=== PATIENT | male | born 1995 | race Caucasian/White ===

== ENCOUNTER 2017-07-19 10:56 | Inpatient (IN) | payer BC ==
[~2017-07-19] VITALS: Ht 182.9 cm; Wt 70.3 kg
[2017-07-19] MEDS ORDERED: MORPHINE SULFATE 4 MG/ML CPJ (NOT FOR IM USE) IV ONE ×2 (11:45→14:15)
[2017-07-19] MEDS ORDERED: SODIUM CHLORIDE 0.9% 1,000 ML IV ONE (11:45)
[2017-07-19] MEDS ORDERED: ONDANSETRON HCL 4MG/2ML VIAL IV ONE ×2 (11:45→14:15)
[2017-07-19 11:55] LABS: BASOPHILS % 0.1 % (0.0-2.0); HEMATOCRIT. 47.9 % (42.0-52.0); HEMOGLOBIN. 16.1 g/dL (14.0-18.0); LYMPHOCYTES % 8.6 % (20.0-50.0); MEAN CORPUSCULAR HEMOGLOBIN 28.5 pg (28.0-32.0); MEAN PLATELET VOLUME 9.9 fl (7.4-10.4); MONOCYTES % 6.5 % (2.0-8.0); NEUTROPHILS % 84.8 % (40.0-76.0); PLATELET 232 x1000/uL (130-400); RED BLOOD CELL COUNT 5.63 mill/uL (4.7-6.1); RED CELL DISTRIBUTION WIDTH 13.8 % (11.6-14.6)
[2017-07-19 12:04] LABS: CARBON DIOXIDE 26 mEq/L (21-32); CHLORIDE 97 mEq/L (98-107)
[2017-07-19] MEDS ORDERED: PIPERACILLIN/TAZ 3.375G PREMIX 50 ML IV ONE (13:45)
[2017-07-19] MEDS ORDERED: PIPERACILLIN/TAZOBACTAM 3.375GM/50ML PREMIX IV ONE (13:45)
[2017-07-19] MEDS ORDERED: SODIUM CHLORIDE 0.9% 1000ML BAG (SEPSIS BOLUS) IV ONE (13:45)
[2017-07-19 14:31] LABS: CLARITY URINE CLOUDY (CLEAR); COLOR URINE DARK YELLOW (YELLOW); GLUCOSE URINE NEGATIVE (NEGATIVE); KETONES URINE 2+ (NEGATIVE); LEUKOCYTE ESTERASE URINE NEGATIVE (NEGATIVE); NITRITE URINE NEGATIVE (NEGATIVE); OCCULT BLOOD URINE NEGATIVE (NEGATIVE); PH URINE 5.5 (4.5-8.0); PROTEIN URINE 2+ (NEGATIVE); SPECIFIC GRAVITY URINE 1.035 (1.005-1.030)
[2017-07-19] MEDS ORDERED: ONDANSETRON HCL 4MG/2ML VIAL IV PRN (14:45)
[2017-07-19] MEDS ORDERED: CLONIDINE 0.1MG TABLET PO PRN (14:45)
[2017-07-19] MEDS ORDERED: ACETAMINOPHEN 325MG TABLET PO PRN (14:45)
[2017-07-19] MEDS ORDERED: MAGNESIUM/ALUMINUM HYDROXIDE/SIMETHICONE 30ML UDC PO PRN (14:45)
[2017-07-19] MEDS ORDERED: HYDROCODONE/ACETAMINOPHEN 5/325MG TABLET PO PRN (14:45)
[2017-07-19] MEDS ORDERED: IPRATROPIUM/ALBUTEROL 0.5-3(2.5)MG/3ML NEB INH PRN (14:45)
[2017-07-19 15:46] LABS: HEPATITIS B SURFACE ANTIGEN NEGATIVE
[2017-07-19 16:14] LABS: HEPATITIS B CORE AB IGM NEGATIVE
[2017-07-19 16:15] LABS: HEPATITIS A AB IGM NEGATIVE (NEGATIVE)
[2017-07-19 18:00] VITALS: BP 103/41
[2017-07-19] MEDS: SODIUM CHLORIDE 0.9% 1,000 ML IV SCH (19:30)
[2017-07-19 20:00] VITALS: BP 97/42
[2017-07-19 20:50] VITALS: BP 97/42
[2017-07-19] MEDS: PIPERACILLIN/TAZ 3.375G PREMIX 50 ML IV SCH (23:21)
[2017-07-20] VITALS: BP 92/41
[2017-07-20] LABS: CREATINE KINASE 86 IU/L (39-308); TROPONIN I < 0.02 ng/mL (0.00-0.04)
[2017-07-20 04:00] VITALS: BP 94/40
[2017-07-20] MEDS: PIPERACILLIN/TAZ 3.375G PREMIX 50 ML IV SCH ×2 (05:36→12:26)
[2017-07-20 07:18] LABS: BASOPHILS % 0.4 % (0.0-2.0); EOSINOPHILS % 0.8 % (0.0-5.0); HEMATOCRIT. 37.6 % (42.0-52.0); HEMOGLOBIN. 12.9 g/dL (14.0-18.0); LYMPHOCYTES % 27.2 % (20.0-50.0); MEAN CORPUSCULAR VOLUME 84.8 fL (80.0-94.0); MEAN PLATELET VOLUME 10.1 fl (7.4-10.4); MONOCYTES % 11.5 % (2.0-8.0); NEUTROPHILS % 60.1 % (40.0-76.0); PLATELET 164 x1000/uL (130-400); RED BLOOD CELL COUNT 4.43 mill/uL (4.7-6.1); RED CELL DISTRIBUTION WIDTH 13.5 % (11.6-14.6)
[2017-07-20 08:00] VITALS: BP 90/40
[2017-07-20 08:01] LABS: CARBON DIOXIDE 26 mEq/L (21-32); CHLORIDE 108 mEq/L (98-107)
[2017-07-20 08:13] LABS: CREATINE KINASE 77 IU/L (39-308); CREATINE KINASE MB FRACTION 0.8 ng/mL (0.5-3.6); HDL CHOLESTEROL 24 mg/dL (40-59); LDL CHOLESTEROL 99 mg/dL (5-100); TROPONIN I < 0.02 ng/mL (0.00-0.04)
[2017-07-20] MEDS: SODIUM CHLORIDE 0.9% 1,000 ML IV SCH (08:54)
[2017-07-20] MEDS ORDERED: ENOXAPARIN 40MG/0.4ML SYR SUBCUT SCH (09:00)
[2017-07-20 10:46] LABS: *AMPHETAMINES SCREEN URINE NEGATIVE (NEGATIVE); *BARBITURATES SCREEN URINE NEGATIVE (NEGATIVE); *BENZODIAZEPINES SCREEN URINE NEGATIVE (NEGATIVE); *COCAINE SCREEN URINE PRESUMTIVE POSITIVE (NEGATIVE); CANNABINOID URINE SCREEN PRESUMTIVE POSITIVE (NEGATIVE); METHADONE URINE SCREEN NEGATIVE (NEGATIVE); OPIATES URINE SCREEN PRESUMTIVE POSITIVE (NEGATIVE); PHENCYCLIDINE URINE SCREEN NEGATIVE (NEGATIVE)
[2017-07-20 12:00] VITALS: BP 98/47
[2017-07-20 12:53] VITALS: BP 98/47
== END 2017-07-20 13:53 | disposition home or self-care (01) | DRG 392 ==
LOC: ER 12:19 → 6EST 14:10 → ENRESERV 16:10
PROVIDERS: ADMIT Internal Medicine; ATTEND Internal Medicine
DX: A08.4 Viral intestinal infection, unspecified (principal); D72.829 Elevated white blood cell count, unspecified; R10.9 Unspecified abdominal pain; F17.200 Nicotine dependence, unspecified, uncomplicated; F19.10 Other psychoactive substance abuse, uncomplicated; R73.9 Hyperglycemia, unspecified; R74.0 Nonspecific elevation of levels of transaminase and lactic acid dehydrogenase [LDH]
CPT/HCPCS: 36415; 74176; 76705; 80053; 80061; 80305; 81001; 82550; 82553; 83605; 83735; 84443; 84484; 85025; 86705; 86709; 86803; 87040; 87086; 87186; 87340; 96361; 96365; 96375; 99285; J1650; J2270; J2405; J2543; J7030

== ENCOUNTER 2021-10-29 15:26 | Inpatient (IN) | payer SELFPAY ==
[~2021-10-29] VITALS: Ht 181.6 cm; Wt 83.0 kg
[2021-10-29] MEDS ORDERED: MAGNESIUM/ALUMINUM HYDROXIDE/SIMETHICONE 30ML UDC PO STA (16:17)
[2021-10-29] MEDS ORDERED: FAMOTIDINE 20MG/2ML VIAL IV STA (16:17)
[2021-10-29] MEDS ORDERED: LACTATED RINGERS 2,000 ML IV STA (16:17)
[2021-10-29] MEDS ORDERED: ONDANSETRON HCL 4MG/2ML INJ IV STA (16:17)
[2021-10-29 17:31] LABS: HEMATOCRIT. 55.7 % (42.0-52.0); HEMOGLOBIN. 18.5 g/dL (14.0-18.0); MEAN CORPUSCULAR HEMOGLOBIN 27.4 pg (28.0-32.0); MEAN CORPUSCULAR VOLUME 82.4 fL (80.0-94.0); RED BLOOD CELL COUNT 6.76 mill/uL (4.7-6.1); RED CELL DISTRIBUTION WIDTH 13.8 % (11.6-14.6)
[2021-10-29 17:41] LABS: CHLORIDE 79 mEq/L (98-107)
[2021-10-29 18:52] LABS: PLATELET ESTIMATE NORMAL
[2021-10-29 18:55] LABS: MEAN PLATELET VOLUME 10.3 fl (7.4-10.4); PLATELET 282 x1000/uL (130-400)
[2021-10-30] MEDS ORDERED: MAGNESIUM/ALUMINUM HYDROXIDE/SIMETHICONE 30ML UDC PO PRN
[2021-10-30] MEDS ORDERED: ONDANSETRON HCL 4MG/2ML INJ IV PRN
[2021-10-30] MEDS ORDERED: DOCUSATE SODIUM 100MG CAPSULE PO PRN
[2021-10-30] MEDS ORDERED: HYDROCODONE/ACETAMINOPHEN 5/325MG TABLET PO PRN
[2021-10-30] MEDS ORDERED: ACETAMINOPHEN 325MG TABLET PO PRN
[2021-10-30] MEDS ORDERED: CLONIDINE 0.1MG TABLET PO PRN
[2021-10-30] MEDS ORDERED: IPRATROPIUM/ALBUTEROL 0.5-3(2.5)MG/3ML NEB HHN PRN
[2021-10-30 00:04] LABS: CLARITY URINE CLOUDY (CLEAR); COLOR URINE YELLOW (YELLOW); KETONES URINE TRACE (NEGATIVE); LEUKOCYTE ESTERASE URINE NEGATIVE (NEGATIVE); NITRITE URINE NEGATIVE (NEGATIVE); OCCULT BLOOD URINE 2+ (NEGATIVE); PROTEIN URINE 1+ (NEGATIVE); SPECIFIC GRAVITY URINE 1.018 (1.005-1.030); UROBILINOGEN URINE 0.2 E.U./dL (0.2-1.0)
[2021-10-30 00:16] LABS: SODIUM URINE RANDOM 15 mEq/L
[2021-10-30 00:22] LABS: *AMPHETAMINES SCREEN URINE NEGATIVE (NEGATIVE); *BARBITURATES SCREEN URINE NEGATIVE (NEGATIVE); *BENZODIAZEPINES SCREEN URINE NEGATIVE (NEGATIVE); *COCAINE SCREEN URINE NEGATIVE (NEGATIVE); CANNABINOID URINE SCREEN PRESUMTIVE POSITIVE (NEGATIVE); METHADONE URINE SCREEN NEGATIVE (NEGATIVE); OPIATES URINE SCREEN NEGATIVE (NEGATIVE); PHENCYCLIDINE URINE SCREEN NEGATIVE (NEGATIVE)
[2021-10-30] MEDS ORDERED: NALOXONE HCL 0.4MG/ML VIAL IV PRN (00:30)
[2021-10-30] MEDS: SODIUM CHLORIDE 0.9% 1,000 ML IV SCH ×3 (00:50→21:00)
[2021-10-30] MEDS ORDERED: PIPERACILLIN/TAZOBACTAM 3.375 G in DEXTROSE 5% WATER 50 ML IV SCH (01:00)
[2021-10-30 01:44] LABS: HEPATITIS B SURFACE ANTIGEN NEGATIVE
[2021-10-30 05:05] LABS: BASOPHILS % 0.1 % (0.0-2.0); EOSINOPHILS % 0.1 % (0.0-5.0); HEMATOCRIT. 42.5 % (42.0-52.0); HEMOGLOBIN. 14.8 g/dL (14.0-18.0); LYMPHOCYTES % 9.6 % (20.0-50.0); MEAN CORPUSCULAR HEMOGLOBIN 28.2 pg (28.0-32.0); MEAN CORPUSCULAR VOLUME 81.2 fL (80.0-94.0); MEAN PLATELET VOLUME 9.9 fl (7.4-10.4); MONOCYTES % 14.4 % (2.0-8.0); NEUTROPHILS % 75.8 % (40.0-76.0); PLATELET 198 x1000/uL (130-400); RED BLOOD CELL COUNT 5.23 mill/uL (4.7-6.1); RED CELL DISTRIBUTION WIDTH 13.7 % (11.6-14.6)
[2021-10-30 05:14] LABS: CHLORIDE 91 mEq/L (98-107)
[2021-10-30 05:21] LABS: LDL CHOLESTEROL 143 mg/dL (5-100)
[2021-10-30 05:23] LABS: HDL CHOLESTEROL 26 mg/dL (40-59)
[2021-10-30 05:26] LABS: CREATINE KINASE MB FRACTION 6.3 ng/mL (0.5-3.6)
[2021-10-30 10:19] LABS: PHOSPHORUS 5.7 mg/dL (2.5-4.9)
[2021-10-30] MEDS ORDERED: KCL 20MEQ/100ML PREMIX 100 ML IV SCH (11:00)
[2021-10-30 20:00] VITALS: BP 134/69
[2021-10-30 20:39] VITALS: BP 134/69
[2021-10-30] MEDS ORDERED: INFLUENZA VACCINE IM ONE (21:00)
[2021-10-30 22:00] VITALS: BP 129/64
[2021-10-30] MEDS: PIPERACILLIN/TAZOBACTAM 3.375 G in DEXTROSE 5% WATER 50 ML IV SCH (22:26)
[2021-10-31] VITALS (12 sets, daily range): BP systolic 108–151; BP diastolic 44–81
[2021-10-31] MEDS: METOCLOPRAMIDE HCL 10MG/2ML VIAL IV SCH ×5 (00:14→22:57)
[2021-10-31 06:43] LABS: T4 FREE 1.21 ng/dL (0.76-1.46)
[2021-10-31 06:50] LABS: HEMATOCRIT. 40.1 % (42.0-52.0); HEMOGLOBIN. 13.6 g/dL (14.0-18.0); MEAN CORPUSCULAR HEMOGLOBIN 28.4 pg (28.0-32.0); MEAN CORPUSCULAR VOLUME 83.9 fL (80.0-94.0); MEAN PLATELET VOLUME 10.4 fl (7.4-10.4); PLATELET 171 x1000/uL (130-400); RED BLOOD CELL COUNT 4.78 mill/uL (4.7-6.1); RED CELL DISTRIBUTION WIDTH 13.3 % (11.6-14.6)
[2021-10-31] MEDS: SODIUM CHLORIDE 0.9% 1,000 ML IV SCH ×2 (07:00→17:11)
[2021-10-31] MEDS: PIPERACILLIN/TAZOBACTAM 3.375 G in DEXTROSE 5% WATER 50 ML IV SCH (08:14)
[2021-10-31] MEDS ORDERED: POTASSIUM-SODIUM PHOSPHATE POWDER PACKET PO NR (10:00)
[2021-10-31 11:27] LABS: PLATELET ESTIMATE NORMAL
[2021-11-01] VITALS: BP 116/63
[2021-11-01 02:00] VITALS: BP 107/43
[2021-11-01] MEDS: SODIUM CHLORIDE 0.9% 1,000 ML IV SCH (03:00)
[2021-11-01 04:00] VITALS: BP 110/66
[2021-11-01 06:00] VITALS: BP 103/49
[2021-11-01] MEDS: METOCLOPRAMIDE HCL 10MG/2ML VIAL IV SCH (06:14)
[2021-11-01 07:06] LABS: HEMOGLOBIN. 12.6 g/dL (14.0-18.0); MEAN CORPUSCULAR HEMOGLOBIN 28.6 pg (28.0-32.0); MEAN CORPUSCULAR VOLUME 83.8 fL (80.0-94.0); MEAN PLATELET VOLUME 10.6 fl (7.4-10.4); PLATELET 170 x1000/uL (130-400); RED BLOOD CELL COUNT 4.42 mill/uL (4.7-6.1); RED CELL DISTRIBUTION WIDTH 13.3 % (11.6-14.6)
[2021-11-01 08:14] LABS: CHLORIDE 108 mEq/L (98-107)
[2021-11-01 08:15] VITALS: BP 111/65
[2021-11-01 08:17] VITALS: BP 111/65
[2021-11-01 08:25] LABS: PHOSPHORUS 2.2 mg/dL (2.5-4.9)
[2021-11-01 09:47] LABS: CREATINE KINASE 1282 IU/L (39-308)
[2021-11-01 12:57] LABS: PLATELET ESTIMATE NORMAL
[2021-11-02 05:09] LABS: HIV SCREEN 4G Non Reactive (Non Reactive)
== END 2021-11-01 09:14 | disposition home or self-care (01) | DRG 720 ==
LOC: ER 15:26 → MICUSO 19:46 → 3WST 10-30 17:34
PROVIDERS: ADMIT Internal Medicine; ATTEND Internal Medicine
DX: A41.9 Sepsis, unspecified organism (principal); N17.0 Acute kidney failure with tubular necrosis; M62.82 Rhabdomyolysis; E87.1 Hypo-osmolality and hyponatremia; E83.39 Other disorders of phosphorus metabolism; E83.51 Hypocalcemia; E87.3 Alkalosis; E78.5 Hyperlipidemia, unspecified; E87.6 Hypokalemia; E03.8 Other specified hypothyroidism; E87.8 Other disorders of electrolyte and fluid balance, not elsewhere classified; K29.70 Gastritis, unspecified, without bleeding; Z20.822 Contact with and (suspected) exposure to COVID-19; R74.01 Elevation of levels of liver transaminase levels; R11.2 Nausea with vomiting, unspecified; F12.90 Cannabis use, unspecified, uncomplicated; Z71.51 Drug abuse counseling and surveillance of drug abuser
CPT/HCPCS: 36415; 71045; 74176; 76705; 76770; 80048; 80053; 80061; 80076; 80305; 81003; 82550; 82553; 83735; 83930; 83935; 84100; 84145; 84300; 84439; 84443; 84481; 84484; 85025; 86705; 86709; 86803; 87340; 87389; 87426; 90686; 93970; 99291; J2405; J2543; J2765; J3480; J3490; J7060; J7120

== ENCOUNTER 2021-11-12 09:03 | Emergency (ER) | payer SELFPAY ==
[~2021-11-12] VITALS: Ht 180.3 cm; Wt 81.0 kg
[2021-11-12] MEDS ORDERED: ONDANSETRON HCL 4MG/2ML INJ IV STA (09:26)
[2021-11-12] MEDS ORDERED: FAMOTIDINE 20MG/2ML VIAL IV STA (09:26)
[2021-11-12] MEDS ORDERED: SODIUM CHLORIDE 0.9% 1,000 ML IV ONE ×2 (09:30→11:00)
[2021-11-12 09:53] LABS: HEMATOCRIT. 45.8 % (42.0-52.0); HEMOGLOBIN. 15.3 g/dL (14.0-18.0); MEAN PLATELET VOLUME 9.4 fl (7.4-10.4); PLATELET 355 x1000/uL (130-400); RED BLOOD CELL COUNT 5.46 mill/uL (4.7-6.1)
[2021-11-12 09:55] LABS: CHLORIDE 103 mEq/L (98-107)
[2021-11-12 10:43] LABS: PLATELET ESTIMATE NORMAL
[2021-11-12] MEDS ORDERED: KETOROLAC 30MG/ML VIAL IV STA (10:58)
[2021-11-12] MEDS ORDERED: VISCOUS LIDOCAINE 2% 15 ML UDC PO STA (10:58)
[2021-11-12] MEDS ORDERED: MAGNESIUM/ALUMINUM HYDROXIDE/SIMETHICONE 30ML UDC PO STA (10:58)
[2021-11-12] MEDS ORDERED: ONDA4TAB5 MT (13:15)
[2021-11-12] MEDS ORDERED: FAMO40TA70 MT (13:15)
[2021-11-12 14:00] VITALS: BP 110/49
== END 2021-11-12 14:30 | disposition home or self-care (01) ==
LOC: ER 10:46
DX: N17.9 Acute kidney failure, unspecified (principal); R11.2 Nausea with vomiting, unspecified; F12.10 Cannabis abuse, uncomplicated; F17.290 Nicotine dependence, other tobacco product, uncomplicated; Z98.890 Other specified postprocedural states
CPT/HCPCS: 36415; 80053; 83690; 83735; 85025; 93005; 96361; 96374; 96375; 99285; 99406; J1885; J2405; J3490; J7030

== ENCOUNTER 2022-02-11 09:32 | Emergency (ER) | payer MEDICAID ==
[~2022-02-11] VITALS: Ht 180.3 cm; Wt 78.0 kg
[~2022-02-11 09:32] MED LIST: FAMO40TA70 MT; ONDA4TAB5 MT
[2022-02-11 10:37] LABS: BASOPHILS % 0.5 % (0.0-2.0); EOSINOPHILS % 0.3 % (0.0-5.0); HEMOGLOBIN. 15.9 g/dL (14.0-18.0); LYMPHOCYTES % 14.3 % (20.0-50.0); MEAN CORPUSCULAR HEMOGLOBIN 28.2 pg (28.0-32.0); NEUTROPHILS % 79.9 % (40.0-76.0); PLATELET 240 x1000/uL (130-400); RED BLOOD CELL COUNT 5.64 mill/uL (4.7-6.1); RED CELL DISTRIBUTION WIDTH 14.3 % (11.6-14.6)
[2022-02-11 10:38] LABS: CHLORIDE 111 mEq/L (98-107)
[2022-02-11] MEDS ORDERED: MORPHINE SULFATE 4 MG/ML CPJ (NOT FOR IM USE) IV STA (10:45)
[2022-02-11] MEDS ORDERED: SODIUM CHLORIDE 0.9% 1,000 ML IV ONE ×2 (10:45→12:45)
[2022-02-11] MEDS ORDERED: ONDANSETRON HCL 4MG/2ML INJ IV STA (10:45)
[2022-02-11 14:56] LABS: CLARITY URINE CLEAR (CLEAR); COLOR URINE YELLOW (YELLOW); KETONES URINE 3+ (NEGATIVE); LEUKOCYTE ESTERASE URINE NEGATIVE (NEGATIVE); NITRITE URINE NEGATIVE (NEGATIVE); OCCULT BLOOD URINE NEGATIVE (NEGATIVE); PH URINE 6.5 (4.5-8.0); PROTEIN URINE NEGATIVE (NEGATIVE); UROBILINOGEN URINE 0.2 E.U./dL (0.2-1.0)
[2022-02-11] MEDS ORDERED: ONDANSETRON HCL 4MG/2ML INJ IV ONE (15:30)
[2022-02-11] MEDS ORDERED: KETOROLAC 30MG/ML VIAL IV ONE (15:30)
[2022-02-11] MEDS ORDERED: OMEP20CA14 MT (15:50)
[2022-02-11] MEDS ORDERED: DICY20TA11 MT (15:50)
[2022-02-11] MEDS ORDERED: ONDA4TAB11 PO (15:50)
[2022-02-11 16:51] VITALS: BP 111/58
== END 2022-02-11 16:52 | disposition home or self-care (01) ==
LOC: ER 14:05
DX: R10.9 Unspecified abdominal pain (principal); F12.10 Cannabis abuse, uncomplicated; Z20.822 Contact with and (suspected) exposure to COVID-19; Z91.018 Allergy to other foods
CPT/HCPCS: 36415; 71045; 74176; 80053; 81003; 83690; 85025; 87426; 96361; 96374; 96375; 96376; 99285; J1885; J2270; J2405; J7030